=== PATIENT | female | born 1985 | race Caucasian/White ===

== ENCOUNTER 2016-09-02 19:48 | Emergency (ER) | payer OTHER ==
--- NOTE | 2016-09-02 21:06 | ED ORDER SUMMARY ---
..... Patient: RAMÍREZ ARIAS OrderSheet [facility] VisitID: [id number] [address] [place] [address] 30y, F Registration Date/Time: 09/02/2016 ORDER SHEET Weight: 67.5 kg (stated) Allergies: Hydrocodone GENERAL ORDERS: CBC w Diff Urgent (20:09/02/2016 EKoroleva P.A.-C) (Ack 20:12 LTapper) (21:19 LMuller) CMP Urgent (20:09/02/2016 EKoroleva P.A.-C) (Ack 20:12 LTapper) (21:19 LMuller) UA-Culture if indicated Urgent (20:09/02/2016 EKoroleva P.A.-C) (Ack 20:12 LTapper) (21:19 LMuller) Lipase Urgent (20:09/02/2016 EKoroleva P.A.-C) (Ack 20:12 LTapper) (21:19 LMuller) PTT Urgent (20:09/02/2016 EKoroleva P.A.-C) (Ack 20:12 LTapper) (21:19 LMuller) PT with INR Urgent (20:09/02/2016 EKoroleva P.A.-C) (Ack 20:12 LTapper) (21:19 LMuller) Urine Urgent (20:09/02/2016 EKoroleva P.A.-C) (Ack 20:12 LTapper) (21:19 LMuller) MEDICATION ORDERS: IV FLUIDS: IV NS : initial bolus 1000 mL (1000 mL/hr), then 1000 mL/hr for X1 (NOW); Routine (20:09/02/2016 EKoroleva P.A.-C) (20:18 DBeyer R.N.) Protonix IVP 40mg 40 mg (Mix in NS 10ml over 2min) (20:09/02/2016 EKoroleva P.A.-C) (20:25 DBeyer R.N.) ORDER SHEET NOTES: [Electronically signed by Laura Taveras P.A.-C (21:19 09/02/2016)] [Electronically signed by Angel Donahue R.N. (16:14 09/07/2016)] [Electronically locked/signed by Angel Donahue R.N. (16:14 09/07/2016)]
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
--- NOTE | 2016-09-02 21:06 | ED ORDER SUMMARY ---
..... Patient: RAMÍREZ ARIAS OrderSheet [facility] VisitID: [id number] [address] [place] [address] 30y, F Registration Date/Time: 09/02/2016 ORDER SHEET Weight: 67.5 kg (stated) Allergies: Hydrocodone GENERAL ORDERS: CBC w Diff Urgent (20:09/02/2016 EKoroleva P.A.-C) (Ack 20:12 LTapper) (21:19 LMuller) CMP Urgent (20:09/02/2016 EKoroleva P.A.-C) (Ack 20:12 LTapper) (21:19 LMuller) UA-Culture if indicated Urgent (20:09/02/2016 EKoroleva P.A.-C) (Ack 20:12 LTapper) (21:19 LMuller) Lipase Urgent (20:09/02/2016 EKoroleva P.A.-C) (Ack 20:12 LTapper) (21:19 LMuller) PTT Urgent (20:09/02/2016 EKoroleva P.A.-C) (Ack 20:12 LTapper) (21:19 LMuller) PT with INR Urgent (20:09/02/2016 EKoroleva P.A.-C) (Ack 20:12 LTapper) (21:19 LMuller) Urine Urgent (20:09/02/2016 EKoroleva P.A.-C) (Ack 20:12 LTapper) (21:19 LMuller) MEDICATION ORDERS: IV FLUIDS: IV NS : initial bolus 1000 mL (1000 mL/hr), then 1000 mL/hr for X1 (NOW); Routine (20:09/02/2016 EKoroleva P.A.-C) (20:18 DBeyer R.N.) Protonix IVP 40mg 40 mg (Mix in NS 10ml over 2min) (20:09/02/2016 EKoroleva P.A.-C) (20:25 DBeyer R.N.) ORDER SHEET NOTES: [Electronically signed by Laura Taveras P.A.-C (21:19 09/02/2016)] [Electronically signed by Angel Donahue R.N. (16:14 09/07/2016)] [Electronically locked/signed by Angel Donahue R.N. (16:14 09/07/2016)]
--- NOTE | 2016-09-02 21:06 | ED NURSING NOTES ---
Clinical Report - Nurses [facility] [address] [place] [address] 09/02/2016 19:50 Patient: RAMÍREZ ARIAS TRIAGE Triage time 19:59 Sep 02 2016. Acuity: LEVEL 3. Chief Complaint: ABDOMINAL PAIN and DIARRHEA. --20:05 Angel Donahue R.N. 20:03 09/02/16. BP: 120/70. HR: 92. RR: 22. O2 saturation: 100%. Temp: 98.2 F. Pain level now 5/10. --20:05 Angel Donahue R.N. Weight: 67.5 kg stated. Height/Length: 68 inches Per Patient. BMI: 22.6. --20:05 Angel Donahue R.N. Medications None. --20:04 Angel Donahue R.N. Allergies Hydrocodone. --20:05 Angel Donahue R.N. History Arrived by private vehicle. ( Pt reports having a BM this evening and noticed blood in her stool. No pain with urination or BM). SOCIAL HX: Never smoker. No alcohol use or drug use. --20:05 Angel Donahue R.N. ADDITIONAL SURGERIES: . Previous Abdominal Surgery. --20:05 Angel Donahue R.N. Interventions ID band on patient. To treatment room. --20:05 Angel Donahue R.N. NURSING PROGRESS NOTES 20:17 09/02/2016 Site #1 started via IV in the right with an 20g angiocath, with aseptic technique; one attempt. Blood drawn: rainbow set. Labeled in the presence of the patient. Saline lock flushed. --20:17 Angel Donahue R.N. 20:18 09/02/2016 Started bag #1 1000 mL IV Fluids IV NS (Saline); at 1000 mL/hr via site #1. Allergies verified and confirmed 5 rights. IV patency established. IV site checked: no pain, redness, or swelling. IV flushed thoroughly pre- and post-medication administration. Completed per protocol. --20:18 Angel Donahue R.N. 20:25 09/02/2016 PROTONIX (Pantoprazole Sodium) IVP 40 mg given over 2 minute(s) via site #1. Allergies verified and confirmed 5 rights. IV patency established. IV site checked: no pain, redness, or swelling. IV flushed thoroughly pre- and post-medication administration. IVP given by RN. --20:25 Angel Donahue R.N. Monitoring of patient in place. Patient gowned. Reassurance given. Side rails up x 1. Bed placed in lowest position. ( Pa performed guaic test, negative result). --20:26 Angel Donahue R.N. 20:26 09/02/16. BP: 115/76. HR: 76. O2 saturation: 100%. --20:26 Angel Donahue R.N. DISPOSITION / DISCHARGE 21:21 09/02/2016 Site #1 removed upon discharge. Bandage applied. --21:21 Angel Donahue R.N. Departure time: 2117. Condition at departure: improved. No learning barriers present. Discharge instructions provided and reviewed with the family. Reviewed medication(s) side effects information. Patient verbalized understanding. Written instructions provided in Georgian. The patient was discharged by the physician conventions assistant. She was discharged home and accompanied by family. She left the Emergency Department ambulatory and via private vehicle. Family member driving. --21:22 Angel Donahue R.N. 21:21 09/02/16. BP: 109/58. HR: 88. RR: 20. O2 saturation: 100%. Temp: 98.1 F. Pain level now 08/30. --21:22 Angel Donahue R.N. Locked/Released at 09/07/2016 16:14 by Angel Donahue R.N.
--- NOTE | 2016-09-02 21:06 | ED NURSING NOTES ---
Clinical Report - Nurses [facility] [address] [place] [address] 09/02/2016 19:50 Patient: RAMÍREZ ARIAS TRIAGE Triage time 19:59 Sep 02 2016. Acuity: LEVEL 3. Chief Complaint: ABDOMINAL PAIN and DIARRHEA. --20:05 Angel Donahue R.N. 20:03 09/02/16. BP: 120/70. HR: 92. RR: 22. O2 saturation: 100%. Temp: 98.2 F. Pain level now 5/10. --20:05 Agnel Donahue R.N. Weight: 67.5 kg stated. Height/Length: 68 inches Per Patient. BMI: 22.6. --20:05 Angel Donahue R.N. Medications None. --20:04 Angel Donahue R.N. Allergies Hydrocodone. --20:05 Angel Donahue R.N. History Arrived by private vehicle. ( Pt reports having a BM this evening and noticed blood in her stool. No pain with urination or BM). SOCIAL HX: Never smoker. No alcohol use or drug use. --20:05 Angel Donahue R.N. ADDITIONAL SURGERIES: . Previous Abdominal Surgery. --20:05 Angel Donahue R.N. Interventions ID band on patient. To treatment room. --20:05 Angel Donahue R.N. NURSING PROGRESS NOTES 20:17 09/02/2016 Site #1 started via IV in the right with an 20g angiocath, with aseptic technique; one attempt. Blood drawn: rainbow set. Labeled in the presence of the patient. Saline lock flushed. --20:17 Angel Donahue R.N. 20:18 09/02/2016 Started bag #1 1000 mL IV Fluids IV NS (Saline); at 1000 mL/hr via site #1. Allergies verified and confirmed 5 rights. IV patency established. IV site checked: no pain, redness, or swelling. IV flushed thoroughly pre- and post-medication administration. Completed per protocol. --20:18 Angel Donahue R.N. 20:25 09/02/2016 PROTONIX (Pantoprazole Sodium) IVP 40 mg given over 2 minute(s) via site #1. Allergies verified and confirmed 5 rights. IV patency established. IV site checked: no pain, redness, or swelling. IV flushed thoroughly pre- and post-medication administration. IVP given by RN. --20:25 Angel Donahue R.N. Monitoring of patient in place. Patient gowned. Reassurance given. Side rails up x 1. Bed placed in lowest position. ( Pa performed guaic test, negative result). --20:26 Angel Donahue R.N. 20:26 09/02/16. BP: 115/76. HR: 76. O2 saturation: 100%. --20:26 Angel Donahue R.N. DISPOSITION / DISCHARGE 21:21 09/02/2016 Site #1 removed upon discharge. Bandage applied. --21:21 Angel Donahue R.N. Departure time: 2117. Condition at departure: improved. No learning barriers present. Discharge instructions provided and reviewed with the family. Reviewed medication(s) side effects information. Patient verbalized understanding. Written instructions provided in Arabic. The patient was discharged by the physician assistant bookkeeper. She was discharged home and accompanied by family. She left the Emergency Department ambulatory and via private vehicle. Family member driving. --21:22 Angel Donahue R.N. 21:21 09/02/16. BP: 109/58. HR: 88. RR: 20. O2 saturation: 100%. Temp: 98.1 F. Pain level now 08/30. --21:22 Angel Donahue R.N. Locked/Released at 09/07/2016 16:14 by Angel Donahue R.N.
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
--- NOTE | 2016-09-07 16:14 | ED DISCHARGE INSTRUCTIONS ---
Patient: RAMÍREZ ARIAS General Instructions [facility] VisitID: [id number] [place] [address] 30y, F Registration Date/Time: 09/02/2016 Minor GI bleed with melena. No hematemesis, hematochezia, hypotension or shock. INSTRUCTIONS (take tylenol not MOTRIN / Naproxen or Ibuprofen). Prescription Medications: Omeprazole 20 mg capsules: take 1 capsule orally every 12 hours for 10 days. Dispense twenty (20). No refill. OTC Medications: Take acetaminophen (Tylenol, Datril, etc.) according to label instructions. Available over the counter. Follow-up: Follow up with your doctor in three days. ADDITIONAL INFORMATION Rectal Bleeding (Stable) Your exam today shows signs of blood in the stool. This is called rectal bleeding, because the blood passes through the rectum. However, the blood may not be coming from the rectum. Blood in the stool may be red or black in color. Red blood in the stool usually comes from the lower gastro-intestinal (GI) tract. This may be due to diverticulosis, polyps, colon inflammation or infection, anal fissure or hemorrhoids. In persons over 50 tumors and cancer of the intestinal tract may first show up as red blood in the stool. Upper GI bleeding causes the stool to turn black. This may occur with bleeding from the esophagus, stomach, duodenum or small intestine. Very small amounts of GI bleeding may not be visible and can only be discovered on a chemical test of the stool. You have not lost a large amount of blood and your condition appears stable at this time. It is very important to have a follow-up exam to determine the exact cause of your bleeding. Home Care: 1) You may resume normal activity as long as you feel well. 2) Avoid aspirin and anti-inflammatory drugs such as ibuprofen (Advil, Motrin) and naproxen (Aleve and Naprosyn). You may use acetaminophen (Tylenol) for pain. [ NOTE : If you have chronic liver disease, talk with your doctor before using acetaminophen.] 3) Avoid alcohol. Follow Up with your doctor or as advised by our medical staff. It is very important that you have further tests done to find the cause of your bleeding. Get Prompt Medical Attention if any of the following occur: -- Large amount of rectal bleeding (more than 1 cup of blood in 24 hours) -- Increasing abdominal pain -- Weakness, dizziness or fainting -- Vomiting blood (red or black color) Omeprazole Magnesium Gastro-resistant tablet What is this medicine? OMEPRAZOLE (oh ME jennyy zol) prevents the production of acid in the stomach. It is used to treat the symptoms of heartburn. You can buy this medicine without a prescription. This product is not for long-term use, unless otherwise directed by your doctor or health nurse behavioral health care. How should I use this medicine? Take this medicine by mouth. Follow the directions on the product label. If you are taking this medicine without a prescription, take one tablet every day. Do not use for longer than 14 days or repeat a course of treatment more often than every 4 months unless directed by a doctor or healthcare professional. Take your dose at regular intervals every 24 hours. Swallow the tablet whole with a drink of water. Do not crush, break or chew. This medicine works best if taken on an empty stomach 30 minutes before breakfast. If you are using this medicine with the prescription of your doctor or healthcare professional, follow the directions you were given. Do not take your medicine more often than directed. Talk to your biodiesel plant operations engineer regarding the use of this medicine in children. Special care may be needed. What side effects may I notice from receiving this medicine? Side effects that you should report to your doctor or health nurse behavioral health care as soon as possible: allergic reactions like skin rash, itching or hives, swelling of the face, lips, or tongue bone, muscle or joint pain breathing problems chest pain or chest tightness dark yellow or brown urine diarrhea dizziness fast, irregular heartbeat feeling faint or lightheaded fever or sore throat muscle spasm palpitations redness, blistering, peeling or loosening of the skin, including inside the mouth seizures tremors unusual bleeding or bruising unusually weak or tired yellowing of the eyes or skin Side effects that usually do not require medical attention (Report these to your doctor or health nurse behavioral health care if they continue or are bothersome.): constipation dry mouth headache loose stools nausea What may interact with this medicine? Do not take this medicine with any of the following medications: atazanavir clopidogrel nelfinavir This medicine may also interact with the following medications: ampicillin certain medicines for anxiety or sleep certain medicines that treat or prevent blood clots like warfarin cyclosporine diazepam digoxin disulfiram iron salts phenytoin prescription medicine for fungal or yeast infection like itraconazole, ketoconazole, voriconazole saquinavir tacrolimus What if I miss a dose? If you miss a dose, take it as soon as you can. If it is almost time for your next dose, take only that dose. Do not take double or extra doses. Where should I keep my medicine? Keep out of the reach of children. Store at room temperature between 20 and 25 degrees C (68 and 77 degrees F). Protect from light and moisture. Throw away any unused medicine after the expiration date. What should I tell my health care provider before I take this medicine? They need to know if you have any of these conditions: black or bloody stools chest pain difficulty swallowing have had heartburn for over 3 months have heartburn with dizziness, lightheadedness or sweating liver disease stomach pain unexplained weight loss vomiting with blood wheezing an unusual or allergic reaction to omeprazole, other medicines, foods, dyes, or preservatives or trying to get breast-feeding What should I watch for while using this medicine? It can take several days before your heartburn gets better. Check with your doctor or health nurse behavioral health care if your condition does not start to get better, or if it gets worse. Do not treat diarrhea with over the counter products. Contact your doctor if you have diarrhea that lasts more than 2 days or if it is severe and watery. Do not treat yourself for heartburn with this medicine for more than 14 days in a row. You should only use this medicine for a 2-week treatment period once every 4 months. If your symptoms return shortly after your therapy is complete, or within the 4 month time frame, call your doctor or health nurse behavioral health care. You have been given the following additional information: Rectal Bleed, Stable Omeprazole Magnesium Gastro-resistant tablet (Electronically signed by Laura Taveras P.A.-C 09/02/2016 21:19)
--- NOTE | 2016-09-07 16:14 | ED DISCHARGE INSTRUCTIONS ---
Patient: RAMÍREZ ARIAS General Instructions [facility] VisitID: [id number] [place] [address] 30y, F Registration Date/Time: 09/02/2016 Minor GI bleed with melena. No hematemesis, hematochezia, hypotension or shock. INSTRUCTIONS (take tylenol not MOTRIN / Naproxen or Ibuprofen). Prescription Medications: Omeprazole 20 mg capsules: take 1 capsule orally every 12 hours for 10 days. Dispense twenty (20). No refill. OTC Medications: Take acetaminophen (Tylenol, Datril, etc.) according to label instructions. Available over the counter. Follow-up: Follow up with your doctor in three days. ADDITIONAL INFORMATION Rectal Bleeding (Stable) Your exam today shows signs of blood in the stool. This is called rectal bleeding, because the blood passes through the rectum. However, the blood may not be coming from the rectum. Blood in the stool may be red or black in color. Red blood in the stool usually comes from the lower gastro-intestinal (GI) tract. This may be due to diverticulosis, polyps, colon inflammation or infection, anal fissure or hemorrhoids. In persons over 50 tumors and cancer of the intestinal tract may first show up as red blood in the stool. Upper GI bleeding causes the stool to turn black. This may occur with bleeding from the esophagus, stomach, duodenum or small intestine. Very small amounts of GI bleeding may not be visible and can only be discovered on a chemical test of the stool. You have not lost a large amount of blood and your condition appears stable at this time. It is very important to have a follow-up exam to determine the exact cause of your bleeding. Home Care: 1) You may resume normal activity as long as you feel well. 2) Avoid aspirin and anti-inflammatory drugs such as ibuprofen (Advil, Motrin) and naproxen (Aleve and Naprosyn). You may use acetaminophen (Tylenol) for pain. [ NOTE : If you have chronic liver disease, talk with your doctor before using acetaminophen.] 3) Avoid alcohol. Follow Up with your doctor or as advised by our medical staff. It is very important that you have further tests done to find the cause of your bleeding. Get Prompt Medical Attention if any of the following occur: -- Large amount of rectal bleeding (more than 1 cup of blood in 24 hours) -- Increasing abdominal pain -- Weakness, dizziness or fainting -- Vomiting blood (red or black color) Omeprazole Magnesium Gastro-resistant tablet What is this medicine? OMEPRAZOLE (oh ME jennyy zol) prevents the production of acid in the stomach. It is used to treat the symptoms of heartburn. You can buy this medicine without a prescription. This product is not for long-term use, unless otherwise directed by your doctor or health child care coordinator. How should I use this medicine? Take this medicine by mouth. Follow the directions on the product label. If you are taking this medicine without a prescription, take one tablet every day. Do not use for longer than 14 days or repeat a course of treatment more often than every 4 months unless directed by a doctor or healthcare professional. Take your dose at regular intervals every 24 hours. Swallow the tablet whole with a drink of water. Do not crush, break or chew. This medicine works best if taken on an empty stomach 30 minutes before breakfast. If you are using this medicine with the prescription of your doctor or healthcare professional, follow the directions you were given. Do not take your medicine more often than directed. Talk to your hall tender regarding the use of this medicine in children. Special care may be needed. What side effects may I notice from receiving this medicine? Side effects that you should report to your doctor or health child care coordinator as soon as possible: allergic reactions like skin rash, itching or hives, swelling of the face, lips, or tongue bone, muscle or joint pain breathing problems chest pain or chest tightness dark yellow or brown urine diarrhea dizziness fast, irregular heartbeat feeling faint or lightheaded fever or sore throat muscle spasm palpitations redness, blistering, peeling or loosening of the skin, including inside the mouth seizures tremors unusual bleeding or bruising unusually weak or tired yellowing of the eyes or skin Side effects that usually do not require medical attention (Report these to your doctor or health child care coordinator if they continue or are bothersome.): constipation dry mouth headache loose stools nausea What may interact with this medicine? Do not take this medicine with any of the following medications: atazanavir clopidogrel nelfinavir This medicine may also interact with the following medications: ampicillin certain medicines for anxiety or sleep certain medicines that treat or prevent blood clots like warfarin cyclosporine diazepam digoxin disulfiram iron salts phenytoin prescription medicine for fungal or yeast infection like itraconazole, ketoconazole, voriconazole saquinavir tacrolimus What if I miss a dose? If you miss a dose, take it as soon as you can. If it is almost time for your next dose, take only that dose. Do not take double or extra doses. Where should I keep my medicine? Keep out of the reach of children. Store at room temperature between 20 and 25 degrees C (68 and 77 degrees F). Protect from light and moisture. Throw away any unused medicine after the expiration date. What should I tell my health care provider before I take this medicine? They need to know if you have any of these conditions: black or bloody stools chest pain difficulty swallowing have had heartburn for over 3 months have heartburn with dizziness, lightheadedness or sweating liver disease stomach pain unexplained weight loss vomiting with blood wheezing an unusual or allergic reaction to omeprazole, other medicines, foods, dyes, or preservatives or trying to get breast-feeding What should I watch for while using this medicine? It can take several days before your heartburn gets better. Check with your doctor or health child care coordinator if your condition does not start to get better, or if it gets worse. Do not treat diarrhea with over the counter products. Contact your doctor if you have diarrhea that lasts more than 2 days or if it is severe and watery. Do not treat yourself for heartburn with this medicine for more than 14 days in a row. You should only use this medicine for a 2-week treatment period once every 4 months. If your symptoms return shortly after your therapy is complete, or within the 4 month time frame, call your doctor or health child care coordinator. You have been given the following additional information: Rectal Bleed, Stable Omeprazole Magnesium Gastro-resistant tablet (Electronically signed by Laura Taveras P.A.-C 09/02/2016 21:19)
--- NOTE | 2016-09-07 16:14 | ED MAR SUMMARY ---
..... Medication Administration Record [facility] [address] [place] [address] Patient: RAMÍREZ ARIAS Visit ID: [id number] 30y, F Weight: 67.5 kg Height/Length: 68 in BMI: 22.6 ALLERGIES: Hydrocodone Start 20:18 09/02/2016 Angel Donahue RBernardino Medication Administered: IV NS (SALINE), Dose: IV Fluids, Rate: 1000 mL/hr, Dispensed: 1000 mL bag, Site: #1 right. Medication Ordered: IV NS : initial bolus 1000 mL (1000 mL/hr), then 1000 mL/hr for X1 (NOW); Routine. Given 20:25 09/02/2016 Angel Donahue RDeeN. Medication Administered: PROTONIX [IVP] (PANTOPRAZOLE SODIUM), Dose: 40 mg IVP over 2 minute(s), Site: #1 right. Medication Ordered: Protonix IVP 40mg 40 mg (Mix in NS 10ml over 2min).
--- NOTE | 2016-09-07 16:14 | ED MAR SUMMARY ---
..... Medication Administration Record [facility] [address] [place] [address] Patient: RAMÍREZ ARIAS Visit ID: [id number] 30y, F Weight: 67.5 kg Height/Length: 68 in BMI: 22.6 ALLERGIES: Hydrocodone Start 20:18 09/02/2016 Angel Donahue RBernardino Medication Administered: IV NS (SALINE), Dose: IV Fluids, Rate: 1000 mL/hr, Dispensed: 1000 mL bag, Site: #1 right. Medication Ordered: IV NS : initial bolus 1000 mL (1000 mL/hr), then 1000 mL/hr for X1 (NOW); Routine. Given 20:25 09/02/2016 Angel Donahue RDeeN. Medication Administered: PROTONIX [IVP] (PANTOPRAZOLE SODIUM), Dose: 40 mg IVP over 2 minute(s), Site: #1 right. Medication Ordered: Protonix IVP 40mg 40 mg (Mix in NS 10ml over 2min).
--- NOTE | 2016-09-07 16:14 | ED MED RECONCILIATION SUMMARY ---
Patient: RAMÍREZ AIRAS Medication Reconciliation Report [facility] VisitID: [id number] [address] [place] [address] 30y, F Registration Date/Time: 09/02/2016 Weight: 67.5 kg Height/Length: 68 in. BMI: 22.6 ALLERGIES: Hydrocodone The patient's Home Medications are listed below: NONE. The source(s) of the original Home Medication information: Not obtained. The following Medications were given to the patient in the Emergency Department: IV NS IV Fluids bolus 0, then 1000 mL/hr, administered: 09/02/2016 8:18:00 PM PROTONIX [IVP] IVP 40 mg, administered: 09/02/2016 8:25:00 PM The following Medications were prescribed to the patient: Take acetaminophen (Tylenol, Datril, etc.) according to label instructions. Available over the counter. -- Laura Taveras PDeeAJose Omeprazole 20 mg capsules: take 1 capsule orally every 12 hours for 10 days. Dispense twenty (20). No refill. -- Laura Taveras P.A.-C
--- NOTE | 2016-09-07 16:14 | ED MED RECONCILIATION SUMMARY ---
Patient: RAMÍREZ ARIAS Medication Reconciliation Report [facility] VisitID: [id number] [address] [place] [address] 30y, F Registration Date/Time: 09/02/2016 Weight: 67.5 kg Height/Length: 68 in. BMI: 22.6 ALLERGIES: Hydrocodone The patient's Home Medications are listed below: NONE. The source(s) of the original Home Medication information: Not obtained. The following Medications were given to the patient in the Emergency Department: IV NS IV Fluids bolus 0, then 1000 mL/hr, administered: 09/02/2016 8:18:00 PM PROTONIX [IVP] IVP 40 mg, administered: 09/02/2016 8:25:00 PM The following Medications were prescribed to the patient: Take acetaminophen (Tylenol, Datril, etc.) according to label instructions. Available over the counter. -- Laura Taveras PDeeAJose Omeprazole 20 mg capsules: take 1 capsule orally every 12 hours for 10 days. Dispense twenty (20). No refill. -- Laura Taveras P.A.-C
== END 2016-09-02 21:18 | disposition home or self-care (01) ==
LOC: ED SRH 19:48
DX: K92.1 Melena (principal); Z88.5 Allergy status to narcotic agent
CPT/HCPCS: 90004; 90100; 92235; 93070; 94001; 94060; 95059